=== PATIENT | male | born 1985 | race Caucasian/White ===

== ENCOUNTER 2024-09-21 13:47 | Outpatient (REF) | payer OTHER, SELFPAY ==
--- OUTSIDE RECORDS SUMMARY | 2024-09-21 16:11 | XMS_ITS | Patient Health Record ---
Author Organization Frantz Smith MD Address [address] [place] [address] Care Team Providers Care Early Childhood Education Worker Name Role Phone Frantz Smith Primary Care Provider [phone] Paramjit Acuna Unavailable [phone] ALLERGIES No Known Allergies REASON FOR REFERRAL No Information MEDICATIONS Medication SIG (Take, Route, Frequency, Duration) Notes Start Date End Date Status metFORMIN HCl 1000 MG take 1 tablet by m out once daily Orally qd for 30 days Active Atorvastatin Calcium 20 MG 1 tablet Oral ly Once a day for 90 days Active SOCIAL HISTORY Tobacco Use: Social History Observation Description Date Details (start date - stop date) Former Smoker NA - NA Sex Assigned At : Social History Observation Description Sex Assigned At Unknown Tobacco Use: Question Answer Notes Are you a: former smoker How long has it been since you last smoked? 3-6 months PROBLEMS Problem Type ICD Code Onset Dates Problem Status W/U Status Risk SNOMED Code Notes Problem Type 2 diabetes mellitus without complication, without long-term current use of insulin (E11.9) Active confirmed 739085859 Problem Hypercholesterolemia (E78.00) Active confirmed 52702975 PLAN OF TREATMENT No Information Insurance Providers Payer Name Payer Address Payer Phone Subscriber Number Group Number Insured Name Patient Relationship to Insured Coverage Start Date Coverage End Date [facility] [id number] [phone] [id number] Gagan Gill Self - patient is the insured MEDICAL (GENERAL) HISTORY Medical History History ICD Code Diabetes High Cholesterol Surgical History Surgery Date(Month/Year)
[2024-09-21 16:52] LABS: Estimated Average Glucose 128 mg/dL; Hemoglobin A1C 180.3453 umol/L; Hemoglobin A1c % 6.1 % (<6.0); Total Hemoglobin (HGBA1C) 4165.2013 umol/L
== END 2024-09-21 13:48 | disposition home or self-care (01) ==
LOC: HO.HMGCLDS 13:47
PROVIDERS: PCP Internal Medicine; Visit Provider Internal Medicine
DX: E11.9 Type 2 diabetes mellitus without complications (principal)
CPT/HCPCS: 36415; 83036